=== PATIENT | male | born 1995 | race Caucasian/White ===

== ENCOUNTER 2017-04-20 10:26 | Emergency (ER) | payer BC ==
--- NOTE | 2017-04-20 11:12 | Emergency Department Record ---
History of Present Illness - General Chief complaint: Flank Pain Stated complaint: FLANK PAIN Time Seen by Provider: 04/20/17 11:05 Source: Patient, RN notes reviewed Mode of Arrival: Ambulatory - History of Present Illness Initial comments: Sharp pain in the left flank started at 7 am today and lasted about 2 hours and gone now. No vomiting ,no dysuria and no diarrhea and no problems eating. This is the second time this happened. No trauma and he works as a mechanics handyman. Onset/Timin -: Hour(s) Location: Left flank Radiation: None Consistency: Intermittent, Now resolved Improves with: None Worsens with: None Reports: Other - Related Data Previous Rx's Medication Instructions Recorded Hydrocodone/Acetaminophen [Stedman 1 each PO Q4HR #30 tablet 04/20/17 5-325 Tablet] Tamsulosin HCl [Flomax] 0.4 mg PO DAILY #7 cap.er.24h 04/20/17 Allergies Allergy/AdvReac Type Severity Reaction Status Date / Time No Known Drug Allergies Allergy Verified 04/20/17 11:06 Travel Screening - Travel/Exposure Within Last 30 Days Have you traveled within the last 30 days?: No Review of Systems Reviewed: No additional complaints except as noted below Constitutional: Reports: As per HPI. Denies: Chills, Fever, Malaise, Night sweats, Weakness, Weight change Eyes: Reports: As per HPI. Denies: Eye discharge, Eye pain, Photophobia, Vision change ENT: Reports: As per HPI. Denies: Congestion, Dental pain, Ear pain, Epistaxis , Hearing loss, Throat pain Respiratory: Reports: As per HPI. Denies: Cough, Dyspnea, Hemoptysis, Stridor, Wheezes Cardiovascular: Reports: As per HPI. Denies: Arrhythmia, Chest pain, Dyspnea on exertion, Edema, Murmurs, Orthopnea, Palpitations, Paroxysmal nocturnal dyspnea, Rheumatic Fever, Syncope Endocrine: Reports: As per HPI. Denies: Fatigue, Heat or cold intolerance, Polydipsia, Polyuria Gastrointestinal: Reports: As per HPI, Other (left flank pain). Denies: Abdominal pain, Constipation, Diarrhea, Hematemesis, Hematochezia, Melena, Nausea, Vomiting Genitourinary: Reports: As per HPI. Denies: Dysuria, Frequency, Hematuria, Incontinence, Retention, Testicular pain, Testicular mass, Urgency Musculoskeletal: Reports: As per HPI. Denies: Arthralgia, Back pain, Gout, Joint swelling, Myalgia, Neck pain Skin: Reports: As per HPI. Denies: Bruising, Change in color, Change in hair/ nails, Lesions, Pruritus, Rash Neurological: Reports: As per HPI. Denies: Abnormal gait, Confusion, Headache, Numbness, Paresthesias, Seizure, Tingling, Tremors, Vertigo, Weakness Psychiatric: Reports: As per HPI. Denies: Anxiety, Auditory hallucinations, Depression, Homicidal thoughts, Suicidal thoughts, Visual hallucinations Hematological/Lymphatic: Reports: As per HPI. Denies: Anemia, Blood Clots, Easy bleeding, Easy bruising, Swollen glands Past Medical History - SOCIAL HISTORY Smoking Status: Current every day smoker Alcohol Use: Occasional Drug Use: None - RESPIRATORY Hx Respiratory Disorders: No - CARDIOVASCULAR Hx Cardio Disorders: No - NEURO Hx Neuro Disorders: No - GI Hx GI Disorders: No - Hx Genitourinary Disorders: No - ENDOCRINE Hx Endocrine Disorders: No - MUSCULOSKELETAL Hx Musculoskeletal Disorders: No - PSYCH Hx Psych Problems: No - HEMATOLOGY/ONCOLOGY Hx Hematology/Oncology Disorders: No Family Medical History Any Significant Family History?: Yes Family Hx Comment (NOT TO BE USED IN PLACE OF ITEMS BELOW): Dad kidney stones Hx Cancer: Father, Grandparents Physical Exam - General General Appearance: Alert, Oriented x3, Cooperative, No acute distress - Head Head exam: Normal inspection - Eye Eye exam: Normal appearance, PERRL Pupils: Normal accommodation - ENT ENT exam: Normal exam, Mucous membranes moist, Normal external ear exam, Normal orophraynx, TM's normal bilaterally Ear exam: Normal external inspection. negative: External canal tenderness Nasal Exam: Normal inspection. negative: Discharge, Sinus tenderness Mouth exam: Normal external inspection, Tongue normal Teeth exam: Normal inspection. negative: Dental caries Throat exam: Normal inspection. negative: Tonsillar erythema, Tonsillar exudate - Neck Neck exam: Normal inspection, Full ROM. negative: Tenderness - Respiratory Respiratory exam: Normal lung sounds bilaterally. negative: Respiratory distress - Cardiovascular Cardiovascular Exam: Regular rate, Normal rhythm, Normal heart sounds - GI/Abdominal GI/Abdominal exam: Soft, Normal bowel sounds, Tenderness (left flank pain) - Rectal Rectal exam: Deferred - exam: Deferred - Extremities Extremities exam: Normal inspection, Full ROM, Normal capillary refill. negative: Tenderness - Back Back exam: Reports: Normal inspection, Full ROM. Denies: Muscle spasm, Rash noted, Tenderness - Neurological Neurological exam: Alert, Normal gait, Oriented X3, Reflexes normal - Psychiatric Psychiatric exam: Normal affect, Normal mood - Skin Skin exam: Dry, Intact, Normal color, Warm Course Vital Signs 04/20/17 10:57 Temperature 97.6 F Pulse Rate 95 H Respiratory 20 Rate Blood Pressure 154/87 Pulse Ox 100 Medical Decision Making - Data Complexity MDM Data: Labs Ordered and/or Reviewed, X-Ray Ordered and/or Reviewed (CT scan kidney with hydro and 2 mm stone at UVJ, more stones in the kidney) - Lab Data Result diagrams: 04/20/17 11:40 04/20/17 11:40 Disposition Clinical Impression: Kidney stone on left side Hydronephrosis Qualifiers: Hydronephrosis type: with ureteral calculous obstruction Qualified Code(s): N13.2 - Hydronephrosis with renal and ureteral calculous obstruction Disposition: Home, Self-Care Condition: (1) Good Instructions: Flank Pain (ED), Kidney Stones (ED), How to Strain Your Urine (ED ), Renal Colic (ED) Additional Instructions: increase fluid follow up with family DR next week strain urine flomax one a day motin or tylenol for mild pain and norco for severe pain please give patient strainer Prescriptions: Hydrocodone/Acetaminophen [Stedman 5-325 Tablet] 1 each PO Q4HR #30 tablet Tamsulosin HCl [Flomax] 0.4 mg PO DAILY #7 cap.er.24h Forms: Patient Portal Access Time of Disposition: 12:33 Quality - Quality Measures Quality Measures: N/A - Blood Pressure Screening Does Patient Have Any of the Following: No Blood Pressure Classification: Pre-Hypertensive BP Reading Systolic Measurement: 154 Diastolic Measurement: 87 Screening for High Blood Pressure: < First Hypertensive BP, F/U Documented > [ G8950] First Hypertensive Follow-up Interventions: Referral to alternative/primary care provider.
[2017-04-20 11:53] LABS: BASO % 0.3 % (0-6); GRAN % 76.4 % (47-80); HEMOGLOBIN 15.2 gm/dl (14.0-18.0); LYMPH % 13.2 % (16-45); MEAN CELL VOLUME 97.8 fl (81-97); MEAN CORPUSCULAR HGB CONC 33.8 g/dl (32-36); MEAN PLATELET VOLUME 8.9 fl (7.4-10.4); MONO % 9.1 % (0-9); PLATELET COUNT 319 K/uL (130-400); RED CELL DISTRIBUTION WIDTH 12.8 % (11.5-14.5); WHITE BLOOD COUNT W/O DIFF 13.6 K/uL (4.2-12.2)
[2017-04-20 12:06] LABS: URINE APPEARANCE CLEAR; URINE BILIRUBIN NEGATIVE (NEGATIVE); URINE BLOOD LARGE (NEGATIVE); URINE COLOR YELLOW; URINE GLUCOSE (UA) NEGATIVE (NEGATIVE); URINE KETONE NEGATIVE (NEGATIVE); URINE LEUKOCYTE ESTERASE NEGATIVE (NEGATIVE); URINE NITRITE NEGATIVE (NEGATIVE); URINE PROTEIN NEGATIVE (NEGATIVE); URINE UROBILINOGEN 0.2 E.U./dL (0.20 - 1.00)
[2017-04-20 12:18] LABS: URINE EPITHELIAL CELLS 0 - 2 (FEW); URINE RBC >50 (NONE SEEN); URINE WBC 0 - 2 (0-2/hpf)
[2017-04-20 12:19] LABS: URINE BACTERIA FEW
[2017-04-20] MEDS: 0.9 % SODIUM CHLORIDE 1,000 ML BAG IV ONE (12:28)
[2017-04-20 12:31] LABS: BLOOD UREA NITROGEN 16 mg/dL (6-20); CREATININE 0.7 mg/dL (0.7-1.2); EST GLOMERULAR FILTRATION RATE > 60 mL/min; GLUCOSE,RANDOM 101 mg/dL (74-109); LIPASE 22 U/L (13-60)
[2017-04-20] MEDS: KETOROLAC 30 MG/ML VIAL IVP ONE (12:58)
[2017-04-20] MEDS: TAMSULOSIN HCL 0.4 MG CAP.ER.24H PO ONE (12:58)
--- NOTE | 2017-04-21 15:24 | CT SCAN REPORT ---
DATE: 04/20/2017. EXAM: CT OF THE ABDOMEN AND PELVIS WITHOUT CONTRAST. HISTORY: Flank pain. TECHNIQUE: CT of the abdomen and pelvis was performed without oral or intravenous contrast. This limits evaluation of bowel and solid visceral organs. COMPARISON: Ultrasound dated 06/10/2010. FINDINGS: Limited evaluation of the lung bases is unremarkable. Osseous structures are grossly intact. Limited evaluation of the liver, spleen, adrenal glands, pancreas, gallbladder, and right kidney is unremarkable. Nonobstructing punctate, 1.0 to 2.0 mm left renal calculi are present. In addition, there is mild left-sided hydronephrosis and hydroureter secondary to a 2.0 mm left ureterovesical junction calculus. No gross evidence for bowel obstruction. Normal appendix. No free air or free fluid. IMPRESSION: 1. PUNCTATE NONOBSTRUCTING LEFT RENAL CALCULI. 2. MILD LEFT HYDRONEPHROSIS AND HYDROURETER SECONDARY TO A 2.0 MM LEFT URETEROVESICAL CALCULUS. JOB NUMBER: [id number] MTDD
== END 2017-04-20 13:24 | disposition home or self-care (01) ==
LOC: ER 10:26
DX: N13.2 Hydronephrosis with renal and ureteral calculous obstruction (principal)
CPT/HCPCS: 99284 ×2; 96374; 96361; 83690; 85025; 80048; 81001; 74176; J1885; J7030

== ENCOUNTER 2017-12-24 18:17 | Emergency (ER) | payer BC ==
[2017-12-24] MEDS ORDERED: PROPARACAINE HCL OPTH 15ML BTL OPTH ONE ×2 (18:30→18:32)
[2017-12-24] MEDS ORDERED: Diph,Pert(Acell),Tet Vac 0.5 ML SYR IM ONE (18:41)
--- NOTE | 2017-12-24 18:41 | Emergency Department Record ---
History of Present Illness - General Chief complaint: Eye Problem Stated complaint: OBJECT IN LT EYE,HEAD INJURY Time Seen by Provider: 12/24/17 18:39 Source: Patient Mode of Arrival: Ambulatory Limitations: No limitations - History of Present Illness Initial comments: 22 yo male presents to ED for evaluation of foreign body sensation to the left eye (now resolved) and injury to the scalp region when a drive shaft struck him on the top of the head. Patient denies LOC, extremity numbness, tingling, or weakness. Patient does not take blood thinner medications, and denies health problems at his baseline. Patient denies FB sensation currently, denies change in vision or blurred vision, and only report moderate headache symptoms at this time. Patient denies FB sensation currently, and denies pain with blinking. Patient was told by his employer to be evaluated. 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 Eye Symptoms: Foreign body sensation, Itching, Redness Severity: Moderate Severity scale (1-10): 2 If Pain, Quality: Aching Consistency: Constant Associated Symptoms: Headache Treatments Prior to Arrival: None - Related Data Visual acuity (L) = 20/: 15 Visual acuity (R) = 20/: 25 With correction: No Patient Tetanus UTD (within 5 yrs): No Home Medications Medication Instructions Recorded Confirmed Last Taken No Home Med [NO HOME MEDS] 12/24/17 12/24/17 Unknown Allergies Allergy/AdvReac Type Severity Reaction Status Date / Time Penicillins Allergy HYPERSENSIT Verified 12/24/17 18:29 IVITY Travel Screening - Travel/Exposure Within Last 30 Days Have you traveled within the last 30 days?: No - Travel/Exposure Within Last Year Have you traveled outside the [place] in the last year?: No - Additonal Travel Details Have you been exposed to anyone with a communicable illness?: No - Travel Symptoms Symptom Screening: None Review of Systems Constitutional: Denies: Chills, Fever, Malaise Eyes: Reports: Eye pain. Denies: Eye discharge, Photophobia, Vision change ENT: Denies: Congestion, Ear pain, Epistaxis Respiratory: Denies: Cough, Dyspnea Cardiovascular: Denies: Chest pain, Dyspnea on exertion Endocrine: Denies: Fatigue, Heat or cold intolerance Gastrointestinal: Denies: Abdominal pain, Nausea, Vomiting Genitourinary: Denies: Incontinence, Retention Musculoskeletal: Denies: Arthralgia, Back pain, Gout, Joint swelling Skin: Reports: Other (abrasion to the forehead). Denies: Bruising, Change in color Neurological: Reports: Headache. Denies: Abnormal gait, Confusion, Numbness, Paresthesias, Tingling, Tremors Psychiatric: Denies: Anxiety Hematological/Lymphatic: Denies: Anemia, Blood Clots Past Medical History - SOCIAL HISTORY Smoking Status: Current every day smoker Alcohol Use: Occasional Drug Use: None - RESPIRATORY Hx Respiratory Disorders: No - CARDIOVASCULAR Hx Cardio Disorders: No - NEURO Hx Neuro Disorders: No - GI Hx GI Disorders: No - Hx Genitourinary Disorders: No - ENDOCRINE Hx Endocrine Disorders: No - MUSCULOSKELETAL Hx Musculoskeletal Disorders: No - PSYCH Hx Psych Problems: No - HEMATOLOGY/ONCOLOGY Hx Hematology/Oncology Disorders: No Family Medical History Any Significant Family History?: Yes Family Hx Comment (NOT TO BE USED IN PLACE OF ITEMS BELOW): Dad kidney stones Hx Cancer: Father, Grandparents Physical Exam - General General Appearance: Alert, Oriented x3, Cooperative, Mild distress Limitations: No limitations - Head Head exam: Atraumatic, Normocephalic, Normal inspection Head exam detail: Abrasion (anterior scalp, no laceration present). negative: Contusion, Rivas's sign, General tenderness, Hematoma, Laceration - Eye Eye exam: Normal appearance, Other (No flourescein uptake on examination to suggest abrasion, -Deborah's sign, no FB on upper/lower lid eversion). negative : Conjunctival injection, Periorbital swelling, Periorbital tenderness, Scleral icterus With correction: No - ENT Ear exam: negative: Auricular hematoma, Auricular trauma Nasal Exam: negative: Active bleeding, Discharge, Dried blood, Foreign body Mouth exam: negative: Drooling, Laceration, Muffled voice, Tongue elevation - Neck Neck exam: Normal inspection. negative: Meningismus, Tenderness - Respiratory Respiratory exam: Normal lung sounds bilaterally. negative: Respiratory distress, Rhonchi, Stridor, Wheezes - Cardiovascular Cardiovascular Exam: Regular rate, Normal rhythm, Normal heart sounds - GI/Abdominal GI/Abdominal exam: Soft. negative: Rebound, Rigid, Tenderness - Rectal Rectal exam: Deferred - exam: Deferred - Extremities Extremities exam: Normal inspection. negative: Calf tenderness, Pedal edema, Tenderness - Back Back exam: Denies: CVA tenderness (R), CVA tenderness (L) - Neurological Neurological exam: Alert, Normal gait, Oriented X3 - Psychiatric Psychiatric exam: Normal affect, Normal mood - Skin Skin exam: Normal color. negative: Abrasion Type of lesion: negative: abrasion Course Vital Signs 12/24/17 18:20 Temperature 98.1 F Pulse Rate 92 H Respiratory 16 Rate Blood Pressure 138/84 Pulse Ox 98 - Reevaluation(s) Reevaluation #1: 12/24/17 18:48 Eye examination: [place] 20/15 affected (left eye) 20/25 right eye No flourescein uptake to suggest corneal abrasion No FB present on corneal examination No FB present on upper/lower lid eversion Patient reports that he believes that he was able to remove the FB prior to arrival, will prescribe gentamycin drips for 3-5 days to prevent secondary infection. Patient appears stable for discharge at this time. Disposition Disposition: Discharge Clinical Impression: Corneal foreign body Qualifiers: Encounter type: initial encounter Laterality: left Qualified Code(s): T15.02XA - Foreign body in cornea, left eye, initial encounter Scalp abrasion Qualifiers: Encounter type: initial encounter Qualified Code(s): S00.01XA - Abrasion of scalp, initial encounter Disposition: Home, Self-Care Condition: (2) Stable Instructions: Eye Foreign Body (ED) Additional Instructions: Return to ED if your symptoms worsen or if you have any concerns. Gentamycin as directed. Follow-up with your family doctor in 1 week as needed. Forms: Patient Portal Access Time of Disposition: 18:41 Quality - Quality Measures Quality Measures: N/A - Blood Pressure Screening Does Patient Have Any of the Following: No Blood Pressure Classification: Pre-Hypertensive BP Reading Systolic Measurement: 138 Diastolic Measurement: 84 Screening for High Blood Pressure: < Pre-Hypertensive BP, F/U Documented > [ G8950] Pre-Hypertensive Follow-up Interventions: Referral to alternative/primary care provider.
[2017-12-24] MEDS ORDERED: GENTAMICIN SULFATE 0.3% OPTH 5 ML BTL OPTH SCH (18:45)
== END 2017-12-24 19:04 | disposition home or self-care (01) ==
LOC: ER 18:17
DX: S05.92XA Unspecified injury of left eye and orbit, initial encounter (principal); S00.01XA Abrasion of scalp, initial encounter; R51 Headache; W22.8XXA Striking against or struck by other objects, initial encounter; F17.210 Nicotine dependence, cigarettes, uncomplicated; Y99.0 Civilian activity done for income or pay
CPT/HCPCS: 90715; 96372; 99283

== ENCOUNTER 2017-12-26 08:11 | Emergency (ER) | payer BC ==
--- NOTE | 2017-12-26 08:20 | Emergency Department Record ---
History of Present Illness - General Chief complaint: Eye Problem Stated complaint: EYE PROBLEM Time Seen by Provider: 12/26/17 08:19 Source: Patient, RN notes reviewed Mode of Arrival: Ambulatory - Related Data Previous Rx's Medication Instructions Recorded Hydrocodone/Acetaminophen [Crawford 1 each PO Q6HR #10 tablet 12/26/17 5-325 Tablet] Sulfacetamide Sodium [Bleph-10] 1 - 2 drop AFFEYE QID #5 ml 12/26/17 Allergies Allergy/AdvReac Type Severity Reaction Status Date / Time Penicillins Allergy HYPERSENSIT Verified 12/26/17 08:19 IVITY Review of Systems Reviewed: No additional complaints except as noted below Constitutional: Reports: As per HPI. Denies: Chills, Fever, Malaise, Night sweats, Weakness, Weight change Eyes: Reports: As per HPI. Denies: Eye discharge, Eye pain, Photophobia, Vision change ENT: Reports: As per HPI. Denies: Congestion, Dental pain, Ear pain, Epistaxis , Hearing loss, Throat pain Respiratory: Reports: As per HPI. Denies: Cough, Dyspnea, Hemoptysis, Stridor, Wheezes Cardiovascular: Reports: As per HPI. Denies: Arrhythmia, Chest pain, Dyspnea on exertion, Edema, Murmurs, Orthopnea, Palpitations, Paroxysmal nocturnal dyspnea, Rheumatic Fever, Syncope Endocrine: Reports: As per HPI. Denies: Fatigue, Heat or cold intolerance, Polydipsia, Polyuria Gastrointestinal: Reports: As per HPI. Denies: Abdominal pain, Constipation, Diarrhea, Hematemesis, Hematochezia, Melena, Nausea, Vomiting Genitourinary: Reports: As per HPI. Denies: Dysuria, Frequency, Hematuria, Incontinence, Retention, Testicular pain, Testicular mass, Urgency Musculoskeletal: Reports: As per HPI. Denies: Arthralgia, Back pain, Gout, Joint swelling, Myalgia, Neck pain Skin: Reports: As per HPI. Denies: Bruising, Change in color, Change in hair/ nails, Lesions, Pruritus, Rash Neurological: Reports: As per HPI. Denies: Abnormal gait, Confusion, Headache, Numbness, Paresthesias, Seizure, Tingling, Tremors, Vertigo, Weakness Psychiatric: Reports: As per HPI. Denies: Anxiety, Auditory hallucinations, Depression, Homicidal thoughts, Suicidal thoughts, Visual hallucinations Hematological/Lymphatic: Reports: As per HPI. Denies: Anemia, Blood Clots, Easy bleeding, Easy bruising, Swollen glands Past Medical History - SOCIAL HISTORY Smoking Status: Current every day smoker Drug Use: None - RESPIRATORY Hx Respiratory Disorders: No - CARDIOVASCULAR Hx Cardio Disorders: No - NEURO Hx Neuro Disorders: No - GI Hx GI Disorders: No - Hx Genitourinary Disorders: No - ENDOCRINE Hx Endocrine Disorders: No - MUSCULOSKELETAL Hx Musculoskeletal Disorders: No - PSYCH Hx Psych Problems: No - HEMATOLOGY/ONCOLOGY Hx Hematology/Oncology Disorders: No Family Medical History Family Hx Comment (NOT TO BE USED IN PLACE OF ITEMS BELOW): Dad kidney stones Hx Cancer: Father, Grandparents Disposition Clinical Impression: Foreign body, Corneal FB (foreign body) Disposition: Home, Self-Care Condition: (1) Good Instructions: Eye Foreign Body (ED) Additional Instructions: follow up with Dr. Mcginnis if not better in 5 days . tylenol or motrin for pain and if severe norco Prescriptions: Hydrocodone/Acetaminophen [Crawford 5-325 Tablet] 1 each PO Q6HR #10 tablet Sulfacetamide Sodium [Bleph-10] 1 - 2 drop AFFEYE QID #5 ml Forms: Patient Portal Access Quality - Quality Measures Quality Measures: N/A - Blood Pressure Screening Does Patient Have Any of the Following: No Blood Pressure Classification: Pre-Hypertensive BP Reading Systolic Measurement: 138 Diastolic Measurement: 80 Screening for High Blood Pressure: < Pre-Hypertensive BP, F/U Documented > [ G8950] Pre-Hypertensive Follow-up Interventions: Referral to alternative/primary care provider.
--- NOTE | 2017-12-26 08:48 | Emergency Department Record ---
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 He also had a drive shaft fall on his head four hours later. His head injury is better and his left eye is red and still irritated and gentomycin drops seem to make it worse. H stopped those drops yesterday. chief complaint: Eye redness, Foreign body Onset/Timin -: Days(s) Location: Left eye Place: Work Eye Symptoms: Blurry vision, Pain, Redness Severity: Mild Severity scale (1-10): 3 If Pain, Quality: Aching Consistency: Constant Associated Symptoms: None Treatments Prior to Arrival: None - Related Data Visual acuity (L) = 20/: 30 Visual acuity (R) = 20/: 20 With correction: No Hx Tetanus Toxoid Vaccination: Yes Year of Tetanus Vaccination: 2018 Patient Tetanus UTD (within 5 yrs): Yes Previous Rx's Medication Instructions Recorded Hydrocodone/Acetaminophen [[place] 1 each PO Q6HR #10 tablet 12/26/17 5-325 Tablet] Sulfacetamide Sodium [Bleph-10] 1 - 2 drop AFFEYE QID #5 ml 12/26/17 Allergies Allergy/AdvReac Type Severity Reaction Status Date / Time Penicillins Allergy HYPERSENSIT Verified 12/26/17 08:19 IVITY Travel Screening - Travel/Exposure Within Last 30 Days Have you traveled within the last 30 days?: No Review of Systems Constitutional: Reports: As per HPI. Denies: Chills, Fever, Malaise, Night sweats, Weakness, Weight change Eyes: Reports: As per HPI, Eye discharge, Eye pain, Photophobia, Vision change ENT: Reports: As per HPI. Denies: Congestion, Dental pain, Ear pain, Epistaxis , Hearing loss, Throat pain Respiratory: Reports: As per HPI. Denies: Cough, Dyspnea, Hemoptysis, Stridor, Wheezes Cardiovascular: Reports: As per HPI. Denies: Arrhythmia, Chest pain, Dyspnea on exertion, Edema, Murmurs, Orthopnea, Palpitations, Paroxysmal nocturnal dyspnea, Rheumatic Fever, Syncope Endocrine: Reports: As per HPI. Denies: Fatigue, Heat or cold intolerance, Polydipsia, Polyuria Gastrointestinal: Reports: As per HPI. Denies: Abdominal pain, Constipation, Diarrhea, Hematemesis, Hematochezia, Melena, Nausea, Vomiting Genitourinary: Reports: As per HPI. Denies: Dysuria, Frequency, Hematuria, Incontinence, Retention, Testicular pain, Testicular mass, Urgency Musculoskeletal: Reports: As per HPI. Denies: Arthralgia, Back pain, Gout, Joint swelling, Myalgia, Neck pain Skin: Reports: As per HPI. Denies: Bruising, Change in color, Change in hair/ nails, Lesions, Pruritus, Rash Neurological: Reports: As per HPI. Denies: Abnormal gait, Confusion, Headache, Numbness, Paresthesias, Seizure, Tingling, Tremors, Vertigo, Weakness Psychiatric: Reports: As per HPI. Denies: Anxiety, Auditory hallucinations, Depression, Homicidal thoughts, Suicidal thoughts, Visual hallucinations Hematological/Lymphatic: Reports: As per HPI. Denies: Anemia, Blood Clots, Easy bleeding, Easy bruising, Swollen glands Past Medical History - SOCIAL HISTORY Smoking Status: Current every day smoker Drug Use: None - RESPIRATORY Hx Respiratory Disorders: No - CARDIOVASCULAR Hx Cardio Disorders: No - NEURO Hx Neuro Disorders: No - GI Hx GI Disorders: No - Hx Genitourinary Disorders: No - ENDOCRINE Hx Endocrine Disorders: No - MUSCULOSKELETAL Hx Musculoskeletal Disorders: No - PSYCH Hx Psych Problems: No - HEMATOLOGY/ONCOLOGY Hx Hematology/Oncology Disorders: No Family Medical History Family Hx Comment (NOT TO BE USED IN PLACE OF ITEMS BELOW): Dad kidney stones Hx Cancer: Father, Grandparents Physical Exam - General General Appearance: Alert, Oriented x3, Cooperative, No acute distress - Head Head exam: Normal inspection - Eye Eye exam: PERRL, Conjunctival injection, EOMI, Other (metal on cornea with rust ring) Pupils: Normal accommodation With correction: No - ENT ENT exam: Normal exam, Mucous membranes moist, Normal external ear exam, Normal orophraynx, TM's normal bilaterally Ear exam: Normal external inspection. negative: External canal tenderness Nasal Exam: Normal inspection. negative: Discharge, Sinus tenderness Mouth exam: Normal external inspection, Tongue normal Teeth exam: Normal inspection. negative: Dental caries Throat exam: Normal inspection. negative: Tonsillar erythema, Tonsillar exudate - Neck Neck exam: Normal inspection, Full ROM. negative: Tenderness - Respiratory Respiratory exam: Normal lung sounds bilaterally. negative: Respiratory distress - Cardiovascular Cardiovascular Exam: Regular rate, Normal rhythm, Normal heart sounds - GI/Abdominal GI/Abdominal exam: Soft, Normal bowel sounds. negative: Tenderness - Rectal Rectal exam: Deferred - exam: Deferred - Extremities Extremities exam: Normal inspection, Full ROM, Normal capillary refill. negative: Tenderness - Back Back exam: Reports: Normal inspection, Full ROM. Denies: Muscle spasm, Rash noted, Tenderness - Neurological Neurological exam: Alert, Normal gait, Oriented X3, Reflexes normal - Psychiatric Psychiatric exam: Normal affect, Normal mood - Skin Skin exam: Dry, Intact, Normal color, Warm Course Vital Signs 12/26/17 08:20 Temperature 98.1 F Pulse Rate 94 H Respiratory 18 Rate Blood Pressure 138/80 Pulse Ox 98 - Reevaluation(s) Reevaluation #1: Discussed metal removal from cornea risks infection and blind spot. Patient agreed to having the metal removed. alcaine eye drops placed in the left eye and removed the metal and 95% of the rust ring. Explained to patient he may need to see Dr. Mcginnis if still having problems with the rest of the rust. Patient tolerated the procedure well 12/26/17 09:21 Disposition Clinical Impression: Foreign body Corneal FB (foreign body) Qualifiers: Encounter type: subsequent encounter Laterality: left Qualified Code(s): T15.02XD - Foreign body in cornea, left eye, subsequent encounter Disposition: Home, Self-Care Condition: (1) Good Instructions: Eye Foreign Body (ED) Additional Instructions: follow up with Dr. Mcginnis if not better in 5 days . tylenol or motrin for pain and if severe norco Prescriptions: Hydrocodone/Acetaminophen [[place] 5-325 Tablet] 1 each PO Q6HR #10 tablet Sulfacetamide Sodium [Bleph-10] 1 - 2 drop AFFEYE QID #5 ml Forms: Patient Portal Access Time of Disposition: 09:32 Quality - Quality Measures Quality Measures: N/A - Blood Pressure Screening Does Patient Have Any of the Following: No Blood Pressure Classification: Pre-Hypertensive BP Reading Systolic Measurement: 138 Diastolic Measurement: 80 Screening for High Blood Pressure: < Pre-Hypertensive BP, F/U Documented > [ G8950] Pre-Hypertensive Follow-up Interventions: Referral to alternative/primary care provider.
[2017-12-26] MEDS ORDERED: PROPARACAINE HCL OPTH 15ML BTL OPTH ONE (08:57)
== END 2017-12-26 09:45 | disposition home or self-care (01) ==
LOC: ER 08:11
DX: T15.02XA Foreign body in cornea, left eye, initial encounter (principal); W22.8XXA Striking against or struck by other objects, initial encounter; F17.210 Nicotine dependence, cigarettes, uncomplicated
CPT/HCPCS: 65220; 99283; 99284

== ENCOUNTER 2018-01-31 22:06 | Emergency (ER) | payer BC ==
[2018-01-31] MEDS ORDERED: HYDROCODONE/APAP 5/325MG TABLET PO ONE (22:25)
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
[2018-02-01] MEDS ORDERED: HYDROCODONE/APAP 5/325MG TABLET PO ONE (00:04)
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
--- NOTE | 2018-02-02 14:55 | RADIOLOGY REPORT ---
DATE: 01/31/2018 at 2242 hours. EXAM: LEFT ANKLE, COMPLETE. HISTORY: Pain in midfoot radiating into ankle post twisting injury. TECHNIQUE: Three views of the left ankle. COMPARISON: Same-day three views of the left foot. ENCOUNTER: Initial. FINDINGS: There is normal bone mineralization. No fracture, dislocation, or destructive bone lesion is seen. The articular relations are maintained. Mild anterior soft tissue swelling is suspected. IMPRESSION: NO ACUTE FRACTURE NOR DISLOCATION IDENTIFIED. JOB NUMBER: [id number] MTDD
--- NOTE | 2018-02-02 15:07 | RADIOLOGY REPORT ---
DATE: 01/31/2018 at 2236 hours. EXAM: LEFT FOOT, THREE VIEWS. HISTORY: Midfoot pain radiating toward ankle since twisting injury. TECHNIQUE: Three views of the left foot. COMPARISON: Same-day three views of the left ankle. ENCOUNTER: Initial. FINDINGS: There is normal bone mineralization. No fracture, dislocation, or destructive bone lesion is seen. The articular relations are maintained. No focal soft tissue abnormality. IMPRESSION: NORMAL LEFT FOOT. JOB NUMBER: [id number] MTDD
== END 2018-02-01 00:12 | disposition home or self-care (01) ==
LOC: ER 22:06
DX: S93.402A Sprain of unspecified ligament of left ankle, initial encounter (principal); M79.672 Pain in left foot; X50.0XXA Overexertion from strenuous movement or load, initial encounter; Y92.410 Unspecified street and highway as the place of occurrence of the external cause; F17.210 Nicotine dependence, cigarettes, uncomplicated
CPT/HCPCS: 99283; 99284